=== PATIENT | female | born 1955 | race Caucasian/White ===

== ENCOUNTER 2018-01-14 17:50 | Emergency (ER) | payer OTHER ==
[~2018-01-14] VITALS: Ht 162.6 cm; Wt 64.0 kg
[2018-01-14 18:03] VITALS: Ht 162.6 cm; Wt 64.0 kg
[2018-01-14 19:54] LABS: BASOPHIL % 0.1 % (0-2); RED CELL DISTRIBUTION WIDTH 14.3 % (11.5-14.5)
[2018-01-14 20:00] LABS: microscopic required? YES; urine erythrocyte NEGATIVE (NEGATIVE)
[2018-01-14 20:01] LABS: PLATELET COUNT 55 x10^3mcL (130-400)
[2018-01-14 20:05] LABS: CALCIUM 9.1 mg/dL (8.5-10.1); CARBON DIOXIDE 27.6 mmol/L (21-32); CREATININE SERUM 1.1 mg/dL (0.6-1.0); POTASSIUM SERUM 3.6 mmol/L (3.5-5.1)
[2018-01-14 20:13] LABS: BILIRUBIN TOTAL 0.7 mg/dL (0.20-1.00)
[2018-01-14 20:14] LABS: TOTAL PROTEIN, SERUM 8.3 g/dL (6.4-8.2)
[2018-01-14 20:19] LABS: AMPHETAMINE QUAL UR NONE DETECTED (NEG <=1000)
[2018-01-14 20:58] VITALS: BP 125/66
== END 2018-01-14 21:22 | disposition home or self-care (01) ==
LOC: ED 17:50
PROVIDERS: Emergency Medicine
DX: J40 Bronchitis, not specified as acute or chronic (principal); B34.9 Viral infection, unspecified; M19.90 Unspecified osteoarthritis, unspecified site; Z91.041 Radiographic dye allergy status
CPT/HCPCS: 36415; 36600; 83880; Q0092; Q0162